=== PATIENT | male | born 1950 | race Two or more races ===

== ENCOUNTER 2025-01-02 03:46 | Inpatient (IN) | payer OTHER ==
[~2025-01-02] VITALS: Ht 180.3 cm; Wt 79.1 kg
[2025-01-02] VITALS (67 sets, daily range): BP systolic 79–125; BP diastolic 49–83; PULSE 72–99; RESP 9–22; TEMP 97.2–98.6; O2SAT 79–100
[2025-01-02] MEDS: DOBUTamine 1000MCG/ML 250 ML IV SCH (03:50)
--- NOTE | 2025-01-02 04:03 | ECG ---
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
--- NOTE | 2025-01-02 04:08 | ED.PDOC ---
HPI Comments 74-year-old male with a history of CAD, AFib, CHF, COPD, mi, diabetes transferred from [facility] where he presented complaining of chest pain. Patient was found to be hypotensive with blood pressure as low as 43/26, and is currently on a dobutamine infusion. Patient underwent extensive workup with EKG showing rate controlled AFib, chest x-ray showing diffuse bilateral interstitial opacities, patchy left basilar airspace disease and cardiomegaly. Labs including serial lactates and troponins were unremarkable. Patient transiently required BiPAP due to hypoxia on 3 L nasal cannula, however now is on 3 L nasal cannula with normal oxygen saturation and no respiratory distress. On arrival to the ED, patient is still complaining of squeezing chest pain in the left lower chest area. He denies feeling short of breath, nausea, vomiting or sweating. Time Seen by MD: 04:03 Allergies: Coded Allergies: NO KNOWN ALLERGIES (Unverified , 01/02/25) Past Medical History PAST MEDICAL HISTORY: AFIB, CAD, COPD, DM, High Lipids, HTN, [place] Surgical History: PTCA Social History Smoker: Quit Greater Than 1 Year Alcohol: Denies ETOH Use Drugs: Denies Drug Use Lives In: Home All Other Systems: Reviewed and Negative Physical Exam General Appearance: No Apparent Distress HEENT: Other (pupils and face symmetric. moist mucous membranes.) Neck: Full Range of Motion, Normal Inspection Respiratory: Decreased Breath Sounds, No Accessory Muscle Use, No Respiratory Distress Cardiovascular: Irregular, No JVD Breast Exam: Deferred Gastrointestinal: Non Tender, Soft Genitalia: Deferred Pelvic: Deferred Rectal: Deferred Extremities: Normal range of motion, Non-tender Neurologic: Alert (oriented x 4), Other (Appropriately conversant and moving all extremities. No gross focal deficit.) Cerebellar Function: NOT DONE Reflexes: NOT DONE Skin: Dry, Normal Color, Warm Lymphatic: NOT DONE EKG EKG : Comments AFib, rate 83, QRS prolonged at 137, QTC prolonged at 510, left axis deviation, old inferior or anteroseptal infarct, nonspecific T change. Was a procedure done? Was a procedure done?: No CP Differential Dx Differential Diagnosis: Angina, Heart Failure, [place], Pulmonary Embolus Differential Diagnosis: CHF Differential Diagnosis: Chest Wall Pain, Esophageal reflux/spasm, Gastritis, Myocardial Infarction, Pericarditis, Pneumonia X-Ray, Labs, Meds, VS Vital Signs Date Time Temp Pulse Resp B/P (MAP) Pulse Ox O2 Delivery O2 Flow Rate FiO2 01/02/25 04:12 92/49 01/02/25 03:56 83 01/02/25 03:50 90/36 Lab Test 01/02/25 03:58 Range/Units White Blood Count 7.9 4.4-10.8 10^3/uL Red Blood Count 4.25 L 4.5-5.90 10^6/uL Hemoglobin 13.6 13.5-17.5 g/dL Hematocrit 40.0 L 41.0-53.0 % Mean Corpuscular Volume 94.1 80.0-100.0 fL Mean Corpuscular Hemoglobin 32.1 H 28.0-32.0 pg Mean Corpuscular Hemoglobin Concent 34.1 32.0-36.0 g/dL Red Cell Distribution Width 13.8 11.8-14.3 % Platelet Count 148 140-450 10^3/uL Mean Platelet Volume 9.7 6.9-10.8 fL Neutrophils (%) (Auto) 56.0 37.0-80.0 % Lymphocytes (%) (Auto) 20.1 10.0-50.0 % Monocytes (%) (Auto) 11.1 0.0-12.0 % Eosinophils (%) (Auto) 12.6 H 0.0-7.0 % Basophils (%) (Auto) 0.2 0.0-2.0 % Neutrophils # (Auto) 4.4 1.6-8.6 10 ^3/uL Lymphocytes # (Auto) 1.6 0.4-5.4 10 ^3/uL Monocytes # (Auto) 0.9 0-1.3 10 ^3/uL Eosinophils # (Auto) 1.0 H 0-0.8 10 ^3/uL Basophils # (Auto) 0 0-0.2 10 ^3/uL Nucleated Red Blood Cells 0.1 % Sodium Level 136 136-145 mmol/L Potassium Level 5.0 3.5-5.1 mmol/L Chloride Level 100 98-107 mmol/L Carbon Dioxide Level 31 20-31 mmol/L Anion Gap 5 5-15 Blood Urea Nitrogen 22 9-23 mg/dL Creatinine 1.13 0.700-1.30 mg/dL Glomerular Filtration Rate Calc 68 >90 mL/min BUN/Creatinine Ratio 19.5 10.0-20.0 Serum Glucose 112 H 74-106 mg/dL Calcium Level 8.1 L 8.7-10.4 mg/dL Troponin I High Sensitivity < 3 L </=54 ng/L B-Type Natriuretic Peptide 117.55 0-100 pg/mL Current Medications Medications (Trade) Dose Ordered Sig/Ventura Route Start Time Stop Time Status Last Admin Dobutamine HCl/ Dextrose 250 ml @ 23.7 mls/hr [id number] IV 01/02/25 04:00 01/02/25 03:50 Norepinephrine Bitartrate 250 ml @ 3.75 mls/hr Q24H IV 01/02/25 04:00 01/02/25 04:12 X-Ray, Labs, Meds, VS Comment 74-year-old male with extensive cardiac history and history of COPD on home O2 transferred from [facility] with chest pain and hypotension Vitals remarkable for BP 90/36 Exam remarkable for irregularly irregular heart rhythm, diminished breath sounds at lung bases Rhythm strip independently interpreted by me: AFib, rate eighty-three, no PVCs CBC, basic metabolic panel and 1st troponin unremarkable. BNP 117.55 Patient treated with the following in the ED: Dopamine infusion was continued. Patient started on a Levophed infusion with improvement of BP. Case discussed with Dr. Ling, who will admit the patient. Time of 1ST Reevaluation: 05:25 Reevaluation 1ST: Improved Patient Education/Counseling: Diagnosis, Treatment Family Education/Counseling: No Family Present SEPSIS Sepsis Screen SEPSIS EXCLUSION NOTE: Sepsis Exclusion Note: Patient presents with SIRS criteria, but the SIRS response is attributed to [CHF ]. Sepsis bundle is not initiated at this time, due to this reason. Further management will focus on the treatment of the above condition (s). Physician Orders Dobutamine 1000mcg/Ml (Dobutrex) (01/02/25 04:00) Norepinephrine 8 Mg/250ml Kit (Levophed) (01/02/25 04:00) B-Type Natriuretic Peptide (01/02/25 04:21) Troponin-I Hs (01/02/25 05:21) Troponin-I Hs (01/02/25 07:21) Urinalysis (01/02/25 04:45) Vital Signs Date Time Temp Pulse Resp B/P (MAP) Pulse Ox O2 Delivery O2 Flow Rate FiO2 01/02/25 04:12 92/49 01/02/25 03:56 83 01/02/25 03:50 90/36 Laboratory Tests Test 01/02/25 03:58 White Blood Count 7.9 10^3/uL (4.4-10.8) Medications Medications Dose Ordered Sig/Ventura Route Start Time Stop Time Status Last Admin Dose Admin Dobutamine HCl/ Dextrose 250 ml @ 23.7 mls/hr [id number] IV 01/02/25 04:00 01/02/25 03:50 Norepinephrine Bitartrate 250 ml @ 3.75 mls/hr Q24H IV 01/02/25 04:00 01/02/25 04:12 Departure 1 Departure Time of Disposition: 05:25 Impression: Primary Impression: Chest pain with high risk for cardiac etiology Additional Impression: Hypotension Qualified Codes: I95.9 - Hypotension, unspecified Disposition: ADMITTED INPATIENT Admit to: ICU Condition: Serious Critical Care Note Critical Care Time?: Yes (35 min-critical care time only) Critical care comment: Critical care time including multiple bedside re-evaluations, review of lab and imaging studies, and discussion of the case with the admitting provider. Patient is high risk for hemodynamic decompensation. Stability Stability form required: No Heart Score Heart Score: Heart Score Response (Comments) Value History Moderate Suspicious 1 EKG Repolarization Disturb 1 Age >65 2 Risk Factors >3 or Hx ASHD 2 Troponin Normal limit 0 Total 6 DANIEL BANKS MD Jan 02, 2025 04:08
[2025-01-02] MEDS: NOREPINEPHRINE 8 MG/250ML KIT 250 ML IV SCH ×2 (04:12→16:14)
[2025-01-02] MEDS: NOREPINEPHRINE 8 MG/250ML KIT 250 ML IV ONE (04:24)
[2025-01-02 04:29] LABS: Hematocrit 40.0 % (41.0-53.0); Hemoglobin 13.6 g/dL (13.5-17.5); Mean Corpuscular Hemoglobin 32.1 pg (28.0-32.0); Mean Corpuscular Volume 94.1 fL (80.0-100.0); Nucleated Red Blood Cells % 0.1 %
[2025-01-02 04:31] LABS: Chloride 100 mmol/L (98-107); Potassium 5.0 mmol/L (3.5-5.1)
[2025-01-02 04:32] LABS: Anion Gap 5 (5-15); Carbon Dioxide 31 mmol/L (20-31)
[2025-01-02 04:37] LABS: BUN/Creatinine Ratio 19.5 (10.0-20.0); Blood Urea Nitrogen 22 mg/dL (9-23)
[2025-01-02 04:40] LABS: Calcium 8.1 mg/dL (8.7-10.4); Glucose 112 mg/dL (74-106); Sodium 136 mmol/L (136-145)
[2025-01-02] MEDS ORDERED: VANCOMYCIN PER PHARMACY 0 MG IV SCH (05:15)
[2025-01-02] MEDS ORDERED: DEXTROSE (50%) 50ML SYRG IV PRN (05:15)
[2025-01-02] MEDS: MORPHINE SULFATE INJ 2 MG/ml SYRG IV ONE (05:40)
[2025-01-02] MEDS: ONDANSETRON HCL 4 MG/2 ML VIAL IV ONE (05:40)
[2025-01-02] MEDS: HEPARIN SODIUM (PORCINE) 5000 UNITS/ML 1ML VIAL IV ONE (05:41)
[2025-01-02] MEDS: PIPERACILLIN-TAZOB 3.375GM 100 ML IV ONE (05:42)
[2025-01-02 05:56] LABS: Hematocrit 41.5 % (41.0-53.0); Hemoglobin 14.4 g/dL (13.5-17.5); Mean Corpuscular Hemoglobin 32.8 pg (28.0-32.0); Mean Corpuscular Volume 95.0 fL (80.0-100.0); Nucleated Red Blood Cells % 0.1 %
[2025-01-02] MEDS: InsuLIN REG 1unit/0.01ml Soln (100units/ml) SC SCH (06:00)
[2025-01-02] MEDS ORDERED: NITROGLYCERIN 0.4 MG SL TAB SL PRN (06:00)
[2025-01-02 06:06] LABS: INR 1.26 (0.9-1.15); Partial Thromboplastin Time 31.4 SEC (24.5-34.5); Prothrombin Time 13.1 sec (9.3-11.8)
[2025-01-02] MEDS: IOHEXOL 350 MG/ML 100ML IJ ONE (06:24)
[2025-01-02] MEDS: ACCU-CHEK COMFORT CURVE STRIP VI SCH (06:27)
--- NOTE | 2025-01-02 06:48 | DVH ---
CTA Chest with intravenous contrast INDICATION: evauate for progression of pulmonary embolism COMPARISON: None TECHNIQUE: Multidetector spiral CTA of the chest was performed of the chest with intravenous contrast . PULMONARY ANGIOGRAPHY PROTOCOL was utilized using a bolus-tracking technique centered on the main p ulmonary artery. Axial, coronal and sagittal multiplanar and MIP reformats were performed. Radiation Dose : 1. Chest: CTDI volume is 41 mGy. Dose-length product is 856 mGy*cm The dose indicators for CT are the volume Computed Tomography (CT) Dose Index (CTDIvol) and the Dose Length Product (DLP), and are measured in units of mGy and mGy-cm, respectively. These indicators are not patient dose, but values generated from the CT scanner acquisition factors. The report includes radiation exposure data for exposures received during this examination. Findings: Pulmonary artery: No pulmonary embolism Lower neck: Normal thyroid. Lungs: Bibasilar subsegmental atelectasis. Left lower lobe compressive atelectasis. Heart/Vascular Structures: Cardiomegaly. Coronary artery calcifications. Vascular calcifications of t he aorta. Lymph Nodes: No adenopathy Pleura: Moderate left pleural effusion. Trace right pleural effusion. Musculoskeletal: No acute osseous abnormality. Degenerative changes of the spine. Soft tissues: Normal. Upper abdomen: Limited portions of the upper abdomen are unremarkable. IMPRESSION: No pulmonary embolism. Cardiomegaly. Moderate left pleural effusion. Left lower lobe compressive atelectasis.
[2025-01-02] MEDS: HEPARIN DRIP/D5W 100UNITS/ML 250 ML IV SCH (06:54)
[2025-01-02] MEDS: cefTRIAXone 1GM/50ML D5W 50 ML IV SCH (08:04)
[2025-01-02] MEDS: MORPHINE SULFATE INJ 2 MG/ml SYRG IV PRN (08:49)
[2025-01-02] MEDS: AZITHROMYCIN 500MG/ 250ML 250 ML IV SCH (09:06)
[2025-01-02] MEDS: ASPirin-EC 81 mg tab PO SCH (09:30)
[2025-01-02] MEDS: APIXABAN 5 MG TAB PO ONE (09:30)
[2025-01-02] MEDS: AMIODARONE HCL 200 MG TAB PO SCH (09:30)
[2025-01-02] MEDS ORDERED: PIPERACILLIN-TAZOB 3.375GM 100 ML IV SCH (14:00)
[2025-01-02] MEDS: HYDROmorphone HCL 2 MG/ML VL/or syr IV PRN (17:06)
--- NOTE | 2025-01-02 17:37 | DVHNC2 ---
Procedure - Ultrasound-guided Left Thoracentesis procedure note: Physician: Dr Lucia Cuello Time out time: Patient medications and allergies reviewed. The risks and benefits of the procedure and the sedation options and risk were discussed with the patient's healthcare proxy. All questions were answered and informed consent was obtained. Patient identification and proposed procedure were verified prior to the procedure by the physician, and a nurse in the patient's room. The heart rate, respiratory rate, oxygen saturations, blood pressure, adequacy of pulmonary ventilation, and response to care were monitored throughout the procedure. The physical status of the patient was reassessed after the procedure. Date: 01/02/25 Consent: Consent was obtained from patient's healthcare proxy prior to procedure. Indication, risks, and benefits were explained at length. Procedure summary: A timeout was performed and a chest x-ray was reviewed prior to procedure. The appropriate site was confirmed and marked. My hands were washed immediately prior to the procedure, I wore a surgical cap, mask with protective eyewear, sterile gown and sterile gloves throughout the procedure. The patient was prepped and draped in a sterile manner using chlorhexidine scrub after the appropriate level was percussed and confirmed by ultrasound. 1% lidocaine was used to anesthetize the skin, subcutaneous tissue, superior aspect of the rib periosteum and parietal pleura. A finder needle was then introduced over the superior aspect of the rib to locate the pleural fluid; sero-sanguineous fluid was aspirated. A 10 blade scalpel was used to hermilo the skin at the insertion site. Thoracentesis needle was then introduced through the skin incision into the pleural space using negative aspiration pressure. The thoracentesis catheter was then threaded without difficulty. 650 mL sero-sanguineous fluid were removed without difficulty. The catheter was then removed. No immediate complications were noted during the procedure. A postprocedure chest x-ray is pending at the time of this note. The pleural fluid will be sent for cultures and cytology. Estimated blood loss is less than 5 mL's. CPT: 19256 JESU CUELLO MD Jan 02, 2025 17:37
[2025-01-02] MEDS: TAMSULOSIN HYDROCHLORIDE 0.4 MG CAP PO SCH (18:00)
[2025-01-02] MEDS: APIXABAN 5 MG TAB PO SCH (21:46)
[2025-01-02] MEDS: ATORVASTATIN 20 MG TAB PO SCH (21:47)
--- NOTE | 2025-01-02 23:44 | DVHINCON2 ---
Date of service: Jan 02, [address] Perez Reason for Consultation Acute hypoxic respiratory failure and pleural effusion. History of Present Illness A 74-year-old man with past medical history that includes COPD, myocardial infarction, AFib, CHF, coronary artery disease and diabetes who presents today transferred from [facility] where he presented compl aining of chest pain. Patient was found to be hypotensive with BP as low as 43/26, and is currently on a dobutamine infusion. Patient underwent extensive workup with EKG showing rate controlled AFib, chest x-ray showing diffuse bilateral interstitial opacities, patchy left basilar airspace disease and cardiomegaly. Labs including serial lactates and troponins were unremarkable. Patient transiently required BiPAP due to hypoxia on 3 LPM NC, however placed back on 3 LPM with normal oxygen saturation and no respiratory distress. On arrival to the ED, patient was still complaining of squeezing chest pain in the left lower chest area. He denied SOB, nausea, vomiting, etc. Patient was admitted for further care. Pulmonary consultation is requested for evaluation and management of acute hypoxic respiratory failure and pleural effusion. Review of Systems: 14-point review of systems negative unless otherwise noted above. Past Medical History: COPD, atrial fibrillation, CAD, diabetes, [place], hyperlipidemia, hypertension. Past Surgical History: PTCA. Medications: Reviewed. Allergies: No known drug allergies. Family History: No family history of premature CAD. No family history of lung disorders. Social History: Former smoker, quit >1 year ago. No alcohol or illicit drug use. Allergies: Coded Allergies: NO KNOWN ALLERGIES (Unverified , 01/02/25) Home Meds No Active Prescriptions or Reported Meds Current Medications Current Medications Medications (Trade) Dose Ordered Sig/Ventura Route PRN Reason Start Time Stop Time Status Last Admin Dobutamine HCl/ Dextrose 250 ml @ 23.7 mls/hr [id number] IV 01/02/25 04:00 01/02/25 03:50 Norepinephrine Bitartrate 250 ml @ 3.75 mls/hr Q24H IV 01/02/25 04:00 01/02/25 15:38 DC 01/02/25 04:12 Piperacillin Sod/ Tazobactam Sod 100 ml @ 25 mls/hr Q8HR IV 01/02/25 14:00 01/02/25 14:00 Cancel Vancomycin HCl 0 ml @ 0 mls/hr UD IV 01/02/25 05:15 01/02/25 05:52 DC Diagnostic Test (Pha) (Accu-Chek Comfort Curve T) 1 strip Q6HR 01/02/25 06:00 01/02/25 18:00 Insulin Human Regular (InsuLIN R) Q6HR SC 01/02/25 06:00 Dextrose 50 ml UD PRN IV Blood Sugar LESS THAN 60 01/02/25 05:15 Aspirin (Ecotrin Enteric Coated Tablet) 81 mg DAILY PO 01/02/25 10:00 01/02/25 09:30 Atorvastatin Calcium (Lipitor) 80 mg HS PO 01/02/25 22:00 01/02/25 21:47 Amiodarone HCl (Cordarone Tablet) 400 mg DAILY PO 01/02/25 10:00 01/02/25 09:30 Tamsulosin HCl (Flomax) 0.4 mg QPM PO 01/02/25 18:00 01/02/25 18:00 Heparin Sodium/ Dextrose 250 ml @ 14 mls/hr [id number] IV 01/02/25 06:30 01/02/25 08:37 DC 01/02/25 06:54 Azithromycin 250 ml @ 125 mls/hr DAILY IV 01/02/25 10:00 01/02/25 09:06 Ceftriaxone Sodium 50 ml @ 100 mls/hr DAILY@09 IV 01/02/25 09:00 01/02/25 08:04 Nitroglycerin (Ntrostat Sublingual) 0.4 mg Q5MINP PRN SL FOR CHEST PAIN 01/02/25 06:00 Morphine Sulfate 2 mg Q30M PRN IV FOR CHEST PAIN 01/02/25 06:00 01/02/25 14:06 Acetaminophen/ Hydrocodone Bitart ([place] 5/325MG Tab) 1 tab Q4HPRN PRN PO MODERATE PAIN (4-6 PAIN SCALE) 01/02/25 06:00 Apixaban (Eliquis) 5 mg BID PO 01/02/25 22:00 01/02/25 21:46 Norepinephrine Bitartrate 250 ml @ 3.75 mls/hr Q24H IV 01/02/25 15:45 01/02/25 16:14 Hydromorphone HCl (Dilaudid Injection) 0.5 mg Q3HPRN PRN IV PAIN SCALE 7 THRU 10 01/02/25 15:45 01/02/25 23:18 Vital Signs Vital Signs Date Time Temp Pulse Resp B/P (MAP) Pulse Ox O2 Delivery O2 Flow Rate FiO2 01/02/25 23:18 75 21 95/57 01/02/25 22:45 95 01/02/25 22:00 Nasal Cannula* 3 32 01/02/25 20:00 97.8 97.8 Physical Exam Gen.: Patient lying in bed in no apparent distress. On supplemental oxygen. Head: Normocephalic, atraumatic. Eyes: EOMI/PERRLA. Ears: Normal hearing. Normal anatomy. Neck/trachea: Trachea midline, supple. Nose: Normal external anatomy. Mouth: Moist mucous membranes. Chest: Decreased air entry bilaterally. No wheezing or rhonchi. Cardiovascular: Positive S1, positive S2. Regular rate and rhythm. Abdomen: Positive bowel sounds in all 4 quadrants. Soft, non-tender, non- distended. : Deferred. Rectal: Deferred. Skin: Warm, dry. Intact. Extremities: 2+ radial pulses bilaterally. No lower extremity edema. Neuro: Awake, alert, oriented x3. No gross motor or sensory deficits. Cranial nerves II through XII intact. Gait not assessed. Labs/Diagnostic Data Labs Test 01/02/25 18:10 01/02/25 17:22 01/02/25 07:14 01/02/25 05:33 Range/Units POC Glucose 130 H 70-106 mg/dl Body Fluid Source Pleural fluid Body Fluid pH 9.0 Body Fluid WBC (Manual) 744 H 0-200 CUMM Body Fluid RBC (Manual) 93179 H 0-2000 CUMM Body Fluid Mononuclear Cells 87 % Body Fluid Polymorphonuclear Cells 13 0-25 % Troponin I High Sensitivity 5 </=54 ng/L White Blood Count 8.8 4.4-10.8 10^3/uL Red Blood Count 4.37 L 4.5-5.90 10^6/uL Hemoglobin 14.4 13.5-17.5 g/dL Hematocrit 41.5 41.0-53.0 % Mean Corpuscular Volume 95.0 80.0-100.0 fL Mean Corpuscular Hemoglobin 32.8 H 28.0-32.0 pg Mean Corpuscular Hemoglobin Concent 34.6 32.0-36.0 g/dL Red Cell Distribution Width 14.0 11.8-14.3 % Platelet Count 149 140-450 10^3/uL Mean Platelet Volume 9.5 6.9-10.8 fL Neutrophils (%) (Auto) 56.9 37.0-80.0 % Lymphocytes (%) (Auto) 20.1 10.0-50.0 % Monocytes (%) (Auto) 10.1 0.0-12.0 % Eosinophils (%) (Auto) 12.6 H 0.0-7.0 % Basophils (%) (Auto) 0.3 0.0-2.0 % Neutrophils # (Auto) 5.0 1.6-8.6 10 ^3/uL Lymphocytes # (Auto) 1.8 0.4-5.4 10 ^3/uL Monocytes # (Auto) 0.9 0-1.3 10 ^3/uL Eosinophils # (Auto) 1.1 H 0-0.8 10 ^3/uL Basophils # (Auto) 0 0-0.2 10 ^3/uL Nucleated Red Blood Cells 0.1 % Prothrombin Time 13.1 H 9.3-11.8 sec Prothrombin Time INR 1.26 H 0.9-1.15 Activated Partial Thromboplast Time 31.4 24.5-34.5 SEC Test 01/02/25 03:58 Range/Units Sodium Level 136 136-145 mmol/L Potassium Level 5.0 3.5-5.1 mmol/L Chloride Level 100 98-107 mmol/L Carbon Dioxide Level 31 20-31 mmol/L Anion Gap 5 5-15 Blood Urea Nitrogen 22 9-23 mg/dL Creatinine 1.13 0.700-1.30 mg/dL Glomerular Filtration Rate Calc 68 >90 mL/min BUN/Creatinine Ratio 19.5 10.0-20.0 Serum Glucose 112 H 74-106 mg/dL Calcium Level 8.1 L 8.7-10.4 mg/dL B-Type Natriuretic Peptide 117.55 0-100 pg/mL Assessment Impression: Acute hypoxic respiratory failure Shock Pleural effusion, left Atelectasis Hx of nicotine dependence Plan: Supplemental oxygen Titrate to keep O2 sats above 92%. CT angio revealed No pulmonary embolism. Cardiomegaly. Moderate left pleural effusion. Left lower lobe compressive atelectasis. Plan for left thoracentesis for pleural effusion On pressors (Levophed) for hemodynamic support Titrate to keep mean arterial pressure greater than 65 mmHg. On dobutamine drip for inotropic support Cardiology recommendations appreciated. Eliquis BID Amiodarone PO Continue antibiotics Incentive spirometry Pain control Avoid oversedation S/p left thoracentesis today with 650 mL sero-sanguineous fluid removed. See s eparate procedure note for details Follow up pleural fluid cultures and cytology Monitor renal function. Monitor electrolytes. Supplement as necessary. Monitor ins and outs. DVT prophylaxis. Prognosis: Poor given patient's multiple co-morbidities. Condition: Critical Rest of plan per hospitalist and other consultants. A total of 35 minutes of critical care time was spent reviewing the patient record, examining the patient, making a diagnostic and therapeutic plan, discussing this plan with the medical personnel, following up on diagnostic studies and following the patient for clinical stability excluding any and all procedures. At least 50% of this time was spent in direct, [id number] contact. Thank you, Dr. Perez, for allowing me to participate in this patient's care. Further recommendations will depend on the patient's clinical course. Please do not hesitate to contact me if you have any questions or concerns. This medical document was created using an electronic medical record system with [employer] dictation system. Although these documentations are being carefully reviewed, there may still be some phonetic and typographical changes. The errors are purely typographical, due to imperfection on the software program, and do not reflect any compromise in the patient's medical care. Plan discussed with: Patient, Other (RN/MD) JESU CARRANZA MD Jan 02, 2025 23:44
[2025-01-03] VITALS (79 sets, daily range): BP systolic 83–127; BP diastolic 46–92; PULSE 69–114; RESP 10–28; TEMP 97.7–98.2; O2SAT 80–99
--- NOTE | 2025-01-03 00:08 | DVHINCON2 ---
Date of service: Jan 02, 2025 Referring Physician Sushil Reason for Consultation Cardiogenic shock History of Present Illness This is a 74-year-old male with a past medica history of CAD, AFib, CHF, COPD, DC diabetes transferred here to [facility] from [facility] where he presented complaining of chest pain. Patient was found to be hypotensive with blood pressure as low as 43/26, and is currently on a dobutamine infusion. Patient underwent an extensive workup with EKG showing rate controlled AFib. Chest x-ray showed diffuse bilateral interstitial opacities, patchy left basilar airspace disease and cardiomegaly. Patient transiently required BiPAP due to hypoxia on 3 L nasal cannula, however now is on 3 L nasal cannula with normal oxygen saturation and no respiratory distress. On arrival to the ED, patient is still complaining of squeezing chest pain in the left lower chest area. CTA chest revealed no pulmonary embolism. There is cardiomegaly, moderate left pleural effusion, left lower lobe compressive atelectasis. EKG shows AFib, rate 83, QRS prolonged at 137, QTC prolonged at 510, left axis deviation, old inferior or anteroseptal infarct, nonspecific T change. Patient was admitted to the hospital. I am asked to consult on this patient. Allergies: Coded Allergies: NO KNOWN ALLERGIES (Unverified , 01/02/25) Current Medications Current Medications Medications (Trade) Dose Ordered Sig/[place] Route PRN Reason Start Time Stop Time Status Last Admin Dobutamine HCl/ Dextrose 250 ml @ 23.7 mls/hr [id number] IV 01/02/25 04:00 01/02/25 03:50 Norepinephrine Bitartrate 250 ml @ 3.75 mls/hr Q24H IV 01/02/25 04:00 01/02/25 15:38 DC 01/02/25 04:12 Piperacillin Sod/ Tazobactam Sod 100 ml @ 25 mls/hr Q8HR IV 01/02/25 14:00 01/02/25 14:00 Cancel Vancomycin HCl 0 ml @ 0 mls/hr UD IV 01/02/25 05:15 01/02/25 05:52 DC Diagnostic Test (Pha) (Accu-Chek Comfort Curve T) 1 strip Q6HR 01/02/25 06:00 01/02/25 18:00 Insulin Human Regular (InsuLIN R) Q6HR SC 01/02/25 06:00 Dextrose 50 ml UD PRN IV Blood Sugar LESS THAN 60 01/02/25 05:15 Aspirin (Ecotrin Enteric Coated Tablet) 81 mg DAILY PO 01/02/25 10:00 01/02/25 09:30 Atorvastatin Calcium (Lipitor) 80 mg HS PO 01/02/25 22:00 01/02/25 21:47 Amiodarone HCl (Cordarone Tablet) 400 mg DAILY PO 01/02/25 10:00 01/02/25 09:30 Tamsulosin HCl (Flomax) 0.4 mg QPM PO 01/02/25 18:00 01/02/25 18:00 Heparin Sodium/ Dextrose 250 ml @ 14 mls/hr [id number] IV 01/02/25 06:30 01/02/25 08:37 DC 01/02/25 06:54 Azithromycin 250 ml @ 125 mls/hr DAILY IV 01/02/25 10:00 01/02/25 09:06 Ceftriaxone Sodium 50 ml @ 100 mls/hr DAILY@09 IV 01/02/25 09:00 01/02/25 08:04 Nitroglycerin (Ntrostat Sublingual) 0.4 mg Q5MINP PRN SL FOR CHEST PAIN 01/02/25 06:00 Morphine Sulfate 2 mg Q30M PRN IV FOR CHEST PAIN 01/02/25 06:00 01/02/25 14:06 Acetaminophen/ Hydrocodone Bitart ([place] 5/325MG Tab) 1 tab Q4HPRN PRN PO MODERATE PAIN (4-6 PAIN SCALE) 01/02/25 06:00 Apixaban (Eliquis) 5 mg BID PO 01/02/25 22:00 01/02/25 21:46 Norepinephrine Bitartrate 250 ml @ 3.75 mls/hr Q24H IV 01/02/25 15:45 01/02/25 16:14 Hydromorphone HCl (Dilaudid Injection) 0.5 mg Q3HPRN PRN IV PAIN SCALE 7 THRU 10 01/02/25 15:45 01/02/25 20:19 Review of Systems All Other Systems: Reviewed and Negative Vital Signs Vital Signs Date Time Temp Pulse Resp B/P (MAP) Pulse Ox O2 Delivery O2 Flow Rate FiO2 01/02/25 22:45 73 18 88/56 (67) 95 01/02/25 22:00 Nasal Cannula* 3 32 01/02/25 20:00 97.8 97.8 Physical Exam GENERAL: Alert and oriented x 3. No acute distress. EYES: PERRL, EOMI. Anicteric. HENT: Moist mucous membranes. LUNGS: breath sounds. CARDIOVASCULAR: Irregular rate and rhythm. ABDOMEN: Soft, nontender and nondistended. EXTREMITIES: No edema. NEUROLOGIC: No focal neurological deficits. SKIN: Warm, dry. Labs/Diagnostic Data Labs Test 01/02/25 18:10 01/02/25 17:22 01/02/25 07:14 01/02/25 05:33 Range/Units POC Glucose 130 H 70-106 mg/dl Body Fluid Source Pleural fluid Body Fluid pH 9.0 Body Fluid WBC (Manual) 744 H 0-200 CUMM Body Fluid RBC (Manual) 30981 H 0-2000 CUMM Body Fluid Mononuclear Cells 87 % Body Fluid Polymorphonuclear Cells 13 0-25 % Troponin I High Sensitivity 5 </=54 ng/L White Blood Count 8.8 4.4-10.8 10^3/uL Red Blood Count 4.37 L 4.5-5.90 10^6/uL Hemoglobin 14.4 13.5-17.5 g/dL Hematocrit 41.5 41.0-53.0 % Mean Corpuscular Volume 95.0 80.0-100.0 fL Mean Corpuscular Hemoglobin 32.8 H 28.0-32.0 pg Mean Corpuscular Hemoglobin Concent 34.6 32.0-36.0 g/dL Red Cell Distribution Width 14.0 11.8-14.3 % Platelet Count 149 140-450 10^3/uL Mean Platelet Volume 9.5 6.9-10.8 fL Neutrophils (%) (Auto) 56.9 37.0-80.0 % Lymphocytes (%) (Auto) 20.1 10.0-50.0 % Monocytes (%) (Auto) 10.1 0.0-12.0 % Eosinophils (%) (Auto) 12.6 H 0.0-7.0 % Basophils (%) (Auto) 0.3 0.0-2.0 % Neutrophils # (Auto) 5.0 1.6-8.6 10 ^3/uL Lymphocytes # (Auto) 1.8 0.4-5.4 10 ^3/uL Monocytes # (Auto) 0.9 0-1.3 10 ^3/uL Eosinophils # (Auto) 1.1 H 0-0.8 10 ^3/uL Basophils # (Auto) 0 0-0.2 10 ^3/uL Nucleated Red Blood Cells 0.1 % Prothrombin Time 13.1 H 9.3-11.8 sec Prothrombin Time INR 1.26 H 0.9-1.15 Activated Partial Thromboplast Time 31.4 24.5-34.5 SEC Test 01/02/25 03:58 Range/Units Sodium Level 136 136-145 mmol/L Potassium Level 5.0 3.5-5.1 mmol/L Chloride Level 100 98-107 mmol/L Carbon Dioxide Level 31 20-31 mmol/L Anion Gap 5 5-15 Blood Urea Nitrogen 22 9-23 mg/dL Creatinine 1.13 0.700-1.30 mg/dL Glomerular Filtration Rate Calc 68 >90 mL/min BUN/Creatinine Ratio 19.5 10.0-20.0 Serum Glucose 112 H 74-106 mg/dL Calcium Level 8.1 L 8.7-10.4 mg/dL B-Type Natriuretic Peptide 117.55 0-100 pg/mL Assessment Chest pain. Bilateral pleural effusions. Rate controlled A Fib. End stage cardiomyopathy. Hypotension. Plan/Recommendation I agree with your ongoing assessment and care of plan. Morphine and [place] for pain management. Amiodarone. Eliquis. Aspirin, Lipitor. IV antibiotics as ordered. Dobutamine drip. Nitro SL. Vasopressors for hemodynamic support. Additional plan as per the hospital course. Critical care time of 90 minutes provided to include time spent evaluation of patient at bedside, when appropriate patient/family education for diagnosis, treatment plan, review of pertinent medical information and discussion of care with specialty providers and PCP. Plan discussed with: Patient VICKY REDDY MD Jan 02, 2025 23:06
[2025-01-03 04:10] LABS: Hematocrit 43.7 % (41.0-53.0); Hemoglobin 14.9 g/dL (13.5-17.5); Mean Corpuscular Hemoglobin 32.1 pg (28.0-32.0); Mean Corpuscular Volume 94.0 fL (80.0-100.0)
[2025-01-03 04:12] LABS: Chloride 100 mmol/L (98-107); Potassium 4.9 mmol/L (3.5-5.1); Sodium 138 mmol/L (136-145)
[2025-01-03 04:13] LABS: Anion Gap 2 (5-15); Calcium 8.9 mg/dL (8.7-10.4)
[2025-01-03 04:18] LABS: BUN/Creatinine Ratio 17.9 (10.0-20.0); Blood Urea Nitrogen 12 mg/dL (9-23); Glucose 103 mg/dL (74-106)
[2025-01-03 04:50] LABS: Carbon Dioxide 36 mmol/L (20-31)
--- NOTE | 2025-01-03 07:08 | DVHPN2 ---
Progress Note Date Seen: Jan 03, 2025 Medical Necessity Reason Pt with a Central, PICC or Fol: Yes The following are medically ne: Sebastian Catheter Subjective Patient reports: No new complaints Review of Systems: HEENT:Normal, CVS:Abnormal, RESPIRATORY:Abnormal, GI:Normal Objective vital signs Vital Sign Date Time Temp Pulse Resp B/P (MAP) Pulse Ox O2 Delivery O2 Flow Rate FiO2 01/03/25 06:47 93 21 95/71 01/03/25 06:00 95 Nasal Cannula* 3 32 01/03/25 00:00 98.2 98.2 Total Intake and Output 01/02/25 01/02/25 01/03/25 15:00 23:00 07:00 Intake Total 630.20 ml 205.5 ml 527.5 ml Output Total 1650 ml 1600 ml Balance 630.20 ml -1444.5 ml -1072.5 ml medications Current Medications Medications Dose Ordered Sig/Ventura Route Start Time Stop Time Status Last Admin Dose Admin Dobutamine HCl/ Dextrose 250 ml @ 23.7 mls/hr [id number] IV 01/02/25 04:00 01/02/25 03:50 23.7 MLS/HR Piperacillin Sod/ Tazobactam Sod 100 ml @ 25 mls/hr Q8HR IV 01/02/25 14:00 01/02/25 14:00 Cancel Diagnostic Test (Pha) 1 strip Q6HR 01/02/25 06:00 01/03/25 06:25 1 STRIP Insulin Human Regular Q6HR SC 01/02/25 06:00 01/03/25 00:14 3 UNITS Dextrose 50 ml UD PRN IV 01/02/25 05:15 Aspirin 81 mg DAILY PO 01/02/25 10:00 01/02/25 09:30 81 MG Atorvastatin Calcium 80 mg HS PO 01/02/25 22:00 01/02/25 21:47 80 MG Amiodarone HCl 400 mg DAILY PO 01/02/25 10:00 01/02/25 09:30 400 MG Tamsulosin HCl 0.4 mg QPM PO 01/02/25 18:00 01/02/25 18:00 0.4 MG Azithromycin 250 ml @ 125 mls/hr DAILY IV 01/02/25 10:00 01/02/25 09:06 125 MLS/HR Ceftriaxone Sodium 50 ml @ 100 mls/hr DAILY@09 IV 01/02/25 09:00 01/02/25 08:04 100 MLS/HR Nitroglycerin 0.4 mg Q5MINP PRN SL 01/02/25 06:00 Morphine Sulfate 2 mg Q30M PRN IV 01/02/25 06:00 01/02/25 14:06 2 MG Acetaminophen/ Hydrocodone Bitart 1 tab Q4HPRN PRN PO 01/02/25 06:00 Apixaban 5 mg BID PO 01/02/25 22:00 01/02/25 21:46 5 MG Norepinephrine Bitartrate 250 ml @ 3.75 mls/hr Q24H IV 01/02/25 15:45 01/02/25 16:14 7.5 MLS/HR Hydromorphone HCl 0.5 mg Q3HPRN PRN IV 01/02/25 15:45 01/03/25 06:47 0.5 MG Examination: GENERAL:Normal, LUNGS:Abnormal, CVS:Abnormal laboratory and microbiology Laboratory Tests 01/03/25 03:30 Test 01/03/25 03:30 Range/Units Serum Glucose 103 74-106 mg/dL Problem List/Assessment/Plan Problem List/Assessment/Plan 1) Acute respiratory failure 2) HFrEF 15% 3) CAD 4) COPD 5) DM 6) Atrial fibrillation 7) L pleural effusion s/p thoracentesis 650 ml out plan; 01/03-----still on 2mcg levophed this AM, on 3L o2 via NC, underwent L thoracentesis yesterday with pulmonary with 650 ml out, cardiology consultation following, restarted patients home eliquis, CTA no evidence of PE, CBC nml. chem shows preserved renal function, attempt to wean levophed to off, supportive care, overall poor prognosis given severe cardiomyopathy Plan discussed with: Other (n) BRADFORD COSTELLO MD Jan 03, 2025 07:08
[2025-01-03] MEDS: MIDODRINE HCL 10 MG TAB PO SCH (07:15)
[2025-01-03 07:26] LABS: RBC Morphology Normal; Total Cells Counted 100.0 (100)
[2025-01-03] MEDS: MIDODRINE HCL 10 MG TAB PO ONE (18:28)
[2025-01-03 22:37] LABS: Urine Protein, UAD Negative (Negative)
--- NOTE | 2025-01-03 23:31 | DVHPN2 ---
Progress Note - Dictate Date Seen: Jan 03, 2025 Medical Necessity Reason Pt with a Central, PICC or Fol: Yes The following are medically ne: Steven Catheter Reason for steven catheter: Strict I&O Subjective Patient seen and examined at bedside. Remains on supplemental oxygen Overnight events reviewed. vital signs Vital Sign Date Time Temp Pulse Resp B/P (MAP) Pulse Ox O2 Delivery O2 Flow Rate FiO2 01/03/25 21:01 103 12 117/60 01/03/25 20:45 98 01/03/25 20:00 Nasal Cannula* 3 32 01/03/25 20:00 97.9 97.9 Total Intake and Output 01/02/25 01/02/25 01/03/25 15:00 23:00 07:00 Intake Total 630.20 ml 205.5 ml 562.25 ml Output Total 1650 ml 1600 ml Balance 630.20 ml -1444.5 ml -1037.75 ml medications Current Medications Medications Dose Ordered Sig/Ventura Route Start Time Stop Time Status Last Admin Dose Admin Piperacillin Sod/ Tazobactam Sod 100 ml @ 25 mls/hr Q8HR IV 01/02/25 14:00 01/02/25 14:00 Cancel Diagnostic Test (Pha) 1 strip Q6HR 01/02/25 06:00 01/03/25 17:17 1 STRIP Insulin Human Regular Q6HR SC 01/02/25 06:00 01/03/25 12:18 3 UNITS Dextrose 50 ml UD PRN IV 01/02/25 05:15 Aspirin 81 mg DAILY PO 01/02/25 10:00 01/03/25 08:58 81 MG Atorvastatin Calcium 80 mg HS PO 01/02/25 22:00 01/03/25 21:28 80 MG Amiodarone HCl 400 mg DAILY PO 01/02/25 10:00 01/03/25 08:57 400 MG Tamsulosin HCl 0.4 mg QPM PO 01/02/25 18:00 01/03/25 17:17 0.4 MG Azithromycin 250 ml @ 125 mls/hr DAILY IV 01/02/25 10:00 01/03/25 08:57 125 MLS/HR Ceftriaxone Sodium 50 ml @ 100 mls/hr DAILY@09 IV 01/02/25 09:00 01/03/25 08:57 100 MLS/HR Nitroglycerin 0.4 mg Q5MINP PRN SL 01/02/25 06:00 Morphine Sulfate 2 mg Q30M PRN IV 01/02/25 06:00 01/02/25 14:06 2 MG Acetaminophen/ Hydrocodone Bitart 1 tab Q4HPRN PRN PO 01/02/25 06:00 Apixaban 5 mg BID PO 01/02/25 22:00 01/03/25 21:28 5 MG Hydromorphone HCl 0.5 mg Q3HPRN PRN IV 01/02/25 15:45 01/03/25 20:31 0.5 MG Trazodone HCl 50 mg HS PO 01/03/25 22:00 01/03/25 21:27 50 MG Midodrine 10 mg TID@0600,1200,1800 PO 01/04/25 06:00 objective Gen.: Patient lying in bed in no apparent distress. On supplemental oxygen. Head: Normocephalic, atraumatic. Eyes: EOMI/PERRLA. Ears: Normal hearing. Normal anatomy. Neck/trachea: Trachea midline, supple. Nose: Normal external anatomy. Mouth: Moist mucous membranes. Chest: Decreased air entry bilaterally. No wheezing or rhonchi. Cardiovascular: Positive S1, positive S2. Regular rate and rhythm. Abdomen: Positive bowel sounds in all 4 quadrants. Soft, non-tender, non- distended. : Deferred. Rectal: Deferred. Skin: Warm, dry. Intact. Extremities: 2+ radial pulses bilaterally. No lower extremity edema. Neuro: Awake, alert, oriented x3. No gross motor or sensory deficits. Cranial nerves II through XII intact. Gait not assessed. laboratory and microbiology Laboratory Tests 01/03/25 03:30 Test 01/03/25 03:30 Range/Units Serum Glucose 103 74-106 mg/dL Assessment/Plan Impression: Acute hypoxic respiratory failure Dependence on supplemental oxygen Shock Pleural effusion, left Atelectasis Hx of nicotine dependence Events: Remains on supplemental oxygen, 3 LPM NC Taper O2 as tolerated On pressors (Levophed) for hemodynamic support Titrate to keep mean arterial pressure greater than 65 mmHg. Taper off as tolerated Continue antibiotics Incentive spirometry S/p left thoracentesis on 01/02/25 with 650 mL sero-sanguineous fluid removed See separate procedure note for full details Follow up pleural fluid cultures and cytology CT angio revealed No pulmonary embolism. Labs and imaging reviewed. Rest of plan as noted below. Plan: Supplemental oxygen Titrate to keep O2 sats above 92%. On pressors (Levophed) for hemodynamic support Titrate to keep mean arterial pressure greater than 65 mmHg. Cardiology recommendations appreciated. Eliquis BID Amiodarone PO Continue antibiotics Incentive spirometry Pain control Avoid oversedation Monitor renal function. Monitor electrolytes. Supplement as necessary. Monitor ins and outs. DVT prophylaxis. Prognosis: Poor given patient's multiple co-morbidities. Condition: Critical Rest of plan per hospitalist and other consultants. A total of 35 minutes of critical care time was spent reviewing the patient record, examining the patient, making a diagnostic and therapeutic plan, discussing this plan with the medical personnel, following up on diagnostic studies and following the patient for clinical stability excluding any and all procedures. At least 50% of this time was spent in direct, [id number] contact. Thank you, Dr. Perez, for allowing me to participate in this patient's care. Further recommendations will depend on the patient's clinical course. Please do not hesitate to contact me if you have any questions or concerns. This medical document was created using an electronic medical record system with [employer] dictation system. Although these documentations are being carefully reviewed, there may still be some phonetic and typographical changes. The errors are purely typographical, due to imperfection on the software program, and do not reflect any compromise in the patient's medical care. Plan discussed with: Other (SONIYA Velázquez) Critical Care Time(min): 35 JESU CARRANZA MD Jan 03, 2025 23:31
--- NOTE | 2025-01-03 23:32 | DVHPN2 ---
Progress Note - Dictate Date Seen: Jan 03, 2025 Medical Necessity Reason Pt with a Central, PICC or Fol: Yes The following are medically ne: Sebastian Catheter Subjective Patient was seen and evaluated in follow up in the ICU. Patient is complaining of SOB. Patient is on 3 LPM NC. Patient underwent left sided thoracentesis yesterday with 650 ml fluid was removed. CO2 36. vital signs Vital Sign Date Time Temp Pulse Resp B/P (MAP) Pulse Ox O2 Delivery O2 Flow Rate FiO2 01/03/25 12:45 84 15 101/67 (78) 98 01/03/25 12:00 Nasal Cannula* 3 32 01/03/25 08:00 97.7 97.7 Total Intake and Output 01/02/25 01/02/25 01/03/25 15:00 23:00 07:00 Intake Total 630.20 ml 205.5 ml 562.25 ml Output Total 1650 ml 1600 ml Balance 630.20 ml -1444.5 ml -1037.75 ml medications Current Medications Medications Dose Ordered Sig/[place] Route Start Time Stop Time Status Last Admin Dose Admin Dobutamine HCl/ Dextrose 250 ml @ 23.7 mls/hr [id number] IV 01/02/25 04:00 01/02/25 03:50 23.7 MLS/HR Piperacillin Sod/ Tazobactam Sod 100 ml @ 25 mls/hr Q8HR IV 01/02/25 14:00 01/02/25 14:00 Cancel Diagnostic Test (Pha) 1 strip Q6HR 01/02/25 06:00 01/03/25 12:18 1 STRIP Insulin Human Regular Q6HR SC 01/02/25 06:00 01/03/25 12:18 3 UNITS Dextrose 50 ml UD PRN IV 01/02/25 05:15 Aspirin 81 mg DAILY PO 01/02/25 10:00 01/03/25 08:58 81 MG Atorvastatin Calcium 80 mg HS PO 01/02/25 22:00 01/02/25 21:47 80 MG Amiodarone HCl 400 mg DAILY PO 01/02/25 10:00 01/03/25 08:57 400 MG Tamsulosin HCl 0.4 mg QPM PO 01/02/25 18:00 01/02/25 18:00 0.4 MG Azithromycin 250 ml @ 125 mls/hr DAILY IV 01/02/25 10:00 01/03/25 08:57 125 MLS/HR Ceftriaxone Sodium 50 ml @ 100 mls/hr DAILY@09 IV 01/02/25 09:00 01/03/25 08:57 100 MLS/HR Nitroglycerin 0.4 mg Q5MINP PRN SL 01/02/25 06:00 Morphine Sulfate 2 mg Q30M PRN IV 01/02/25 06:00 01/02/25 14:06 2 MG Acetaminophen/ Hydrocodone Bitart 1 tab Q4HPRN PRN PO 01/02/25 06:00 Apixaban 5 mg BID PO 01/02/25 22:00 01/03/25 08:57 5 MG Norepinephrine Bitartrate 250 ml @ 3.75 mls/hr Q24H IV 01/02/25 15:45 01/02/25 16:14 7.5 MLS/HR Hydromorphone HCl 0.5 mg Q3HPRN PRN IV 01/02/25 15:45 01/03/25 09:51 0.5 MG Trazodone HCl 50 mg HS PO 01/03/25 22:00 objective GENERAL: Alert and oriented x 3. No acute distress. EYES: PERRL, EOMI. Anicteric. HENT: Moist mucous membranes. LUNGS: breath sounds. CARDIOVASCULAR: Irregular rate and rhythm. ABDOMEN: Soft, nontender and nondistended. EXTREMITIES: No edema. NEUROLOGIC: No focal neurological deficits. SKIN: Warm, dry. laboratory and microbiology Laboratory Tests 01/03/25 03:30 Test 01/03/25 03:30 Range/Units Serum Glucose 103 74-106 mg/dL Problem List Chest pain. Bilateral pleural effusions. Rate controlled A Fib. End stage cardiomyopathy. Hypotension. Assessment/Plan Continued all current supportive medical care. Dilaudid and [place] for pain management. Amiodarone. Eliquis. Aspirin, Lipitor. IV antibiotics as ordered. Nitro SL. Additional plan as per the hospital course. Critical care time of 45 minutes provided to include time spent evaluation of patient at bedside, when appropriate patient/family education for diagnosis, treatment plan, review of pertinent medical information and discussion of care with specialty providers and PCP. Plan discussed with: Patient VICKY REDDY MD Jan 03, 2025 13:28
[2025-01-04] VITALS (7 sets, daily range): BP systolic 103–118; BP diastolic 64–79; PULSE 63–111; RESP 14–19; TEMP 97.6–98.1; O2SAT 91–96
--- NOTE | 2025-01-04 00:43 | DVHSR ---
APPROVED REPORT EXAM: Two-dimensional and M-mode echocardiogram with Doppler and color Doppler. Blood Pressure: 98/65 mmHg INDICATION CHF RISK FACTORS Height: 5' 11", Weight: 174 DIMENSIONS LVDd6.8 (3.8-5.7cm)LA (2D)4.7 (1.9-4.0cm)Aortic Root3.7 (2.0-3.7cm) LVDs6.6 (2.5-4.0cm)LA (MM) (1.9-4.0cm)Aortic Cusp Exc1.6 (1.5-2.0cm) EF (%) 6.0 (55-70%)Rt. Atrium5.3 (1.9-4.0cm)Asc. Aorta cm IVSd1.3 (0.7-1.1cm)RV (D) (1.8-2.4cm) PWd1.2 (0.7-1.1cm) Mitral Valve MitralMitral Stenosis E wave1.10m/sMV Mean GR.mmHg E/A ratio0.02D MVAcm2 Aortic Valve Aortic ValveAortic Stenosis V10.50m/Aureliano Mean GR.1mmHg V20.70m/Aureliano Peak GR.2mmHg LVOT Diameter2.6 (1.8-2.4cm)Doppler AVA3.79cm2 Pulmonic Valve V20.50m/s Tricuspid Valve TR Velocity2.40m/s [id number] Conclusion REMARKABLY DILATED ALL CARDIAC CHAMBERS SEVERE LV AND RV HYPOKINESIS LV EF IS ONLY 6% TIPS OF MITRAL VALVE CALCIFIED NO EFFUSION IT IS END STAGE DILATED CARDIOMYOPATHY
[2025-01-04] MEDS: MIDODRINE HCL 10 MG TAB PO SCH (06:12)
--- NOTE | 2025-01-04 11:54 | DVHDS2 ---
New Physician D'charge PN Admitting Diagnosis Admitting Diagnosis chf shock Discharge Diagnosis end stage CHF EF 5% Respiratory failure afib Operations or Procedures none Reason(s) For Hospitalization Surgery Hospital Course 74 M who was transferred from outside hospital to this ER for hypotension and cardiogenic shock. Patient has known hx of end stage cardiomyopathy dilated and thus he was admitted to ICU on dobutamine gtt and levophed. Cardio saw him he had an echo done and EF 5-6% extremely low and end stage. Eventually he was weaned off the dobutamine and levophed and downgraded to tele. CBC was nml and chem panel also nml. He takes eliquis at home for afib which was continued. Had a lengthy discussion with the patient and his given his severe cardiomyopathy and hospice was suggested by the electrical maintenance worker however at this time it does not appear they are interested in hospice care. Given his low EF state and end stage heart failure he is at VERY high risk for sudden cardiac even, RI, cardiogenic shock, cardiac arrest and . THis was explained to family and they understand. At this time patient is hemodynamically stable and he will continue his home cardiac meds as prescribed by cardiology. Family will keep the option open for hospice should he decide on that. [facility] to arrange for all outpt follow up. Patient overall prognosis poor with high likelihood of readmission or adverse cardiac event. Treatment Plan Discharge Condition of Discharge Good Disposition Home Discharge Instructions Diet: Cardiac 2g Na,low cholest Activity: No Restrictions, As Tolerated Medications: see med sheet Follow Up Care Discharge Statement: "Patient was advised to return to the ER or call 911 if any headaches, dizziness, shortness of breath, chest pain, abdominal pain, bleeding, fevers, or worsening of medical condition. Patient was counseled about treatment plan, medications, possible side effects, patientverbalized understanding. All questions were answered to the best of my ability. This discharge took greater then 30 minutes in planning, reviewing documentation, counseling the patient, and discussing with other team members." BRADFORD COSTELLO MD Jan 04, 2025 11:54
[2025-01-04] MEDS: HYDROcodone-ACET 5/325MG TAB PO PRN (13:51)
--- NOTE | 2025-01-04 23:02 | DVHPN2 ---
Progress Note - Dictate Date Seen: Jan 04, 2025 Medical Necessity Reason Pt with a Central, PICC or Fol: Yes The following are medically ne: Steven Catheter Reason for steven catheter: Strict I&O Subjective Patient was seen and evaluated in follow up. Patient was downgraded to a tele bed. Patient denies any cardiac symptoms. Patient is cardiac stable for discharge. Telemetry reviewed. vital signs Vital Sign Date Time Temp Pulse Resp B/P (MAP) Pulse Ox O2 Delivery O2 Flow Rate FiO2 01/04/25 11:50 107 15 105/72 01/04/25 10:49 98.1 95 01/04/25 08:00 Nasal Cannula* 3 32 Total Intake and Output 01/03/25 01/03/25 01/04/25 15:00 23:00 07:00 Intake Total 555.000 ml 240 ml 100 ml Output Total 500 ml 640 ml Balance 555.000 ml -260 ml -540 ml medications Current Medications Medications Dose Ordered Sig/[place] Route Start Time Stop Time Status Last Admin Dose Admin Piperacillin Sod/ Tazobactam Sod 100 ml @ 25 mls/hr Q8HR IV 01/02/25 14:00 01/02/25 14:00 Cancel Diagnostic Test (Pha) 1 strip Q6HR 01/02/25 06:00 01/04/25 12:00 1 STRIP Insulin Human Regular Q6HR SC 01/02/25 06:00 01/03/25 23:53 2 UNITS Dextrose 50 ml UD PRN IV 01/02/25 05:15 Aspirin 81 mg DAILY PO 01/02/25 10:00 01/03/25 08:58 81 MG Atorvastatin Calcium 80 mg HS PO 01/02/25 22:00 01/03/25 21:28 80 MG Amiodarone HCl 400 mg DAILY PO 01/02/25 10:00 01/03/25 08:57 400 MG Tamsulosin HCl 0.4 mg QPM PO 01/02/25 18:00 01/03/25 17:17 0.4 MG Azithromycin 250 ml @ 125 mls/hr DAILY IV 01/02/25 10:00 01/03/25 08:57 125 MLS/HR Ceftriaxone Sodium 50 ml @ 100 mls/hr DAILY@09 IV 01/02/25 09:00 01/03/25 08:57 100 MLS/HR Nitroglycerin 0.4 mg Q5MINP PRN SL 01/02/25 06:00 Morphine Sulfate 2 mg Q30M PRN IV 01/02/25 06:00 01/02/25 14:06 2 MG Acetaminophen/ Hydrocodone Bitart 1 tab Q4HPRN PRN PO 01/02/25 06:00 Apixaban 5 mg BID PO 01/02/25 22:00 01/03/25 21:28 5 MG Hydromorphone HCl 0.5 mg Q3HPRN PRN IV 01/02/25 15:45 01/04/25 11:50 0.5 MG Trazodone HCl 50 mg HS PO 01/03/25 22:00 01/03/25 21:27 50 MG Midodrine 10 mg TID@0600,1200,1800 PO 01/04/25 06:00 01/04/25 11:49 10 MG objective GENERAL: Alert and oriented x 3. No acute distress. EYES: PERRL, EOMI. Anicteric. HENT: Moist mucous membranes. LUNGS: breath sounds. CARDIOVASCULAR: Irregular rate and rhythm. ABDOMEN: Soft, nontender and nondistended. EXTREMITIES: No edema. NEUROLOGIC: No focal neurological deficits. SKIN: Warm, dry. laboratory and microbiology Laboratory Tests 01/03/25 03:30 Test 01/03/25 03:30 Range/Units Serum Glucose 103 74-106 mg/dL Problem List Chest pain. Bilateral pleural effusions. Rate controlled A Fib. End stage cardiomyopathy. Hypotension. Assessment/Plan Continued all current supportive medical care. Nitro SL. Midodrine. Dilaudid and [place] for pain management. Additional plan as per the hospital course. Plan discussed with: Patient VICKY REDDY MD Jan 04, 2025 13:23
--- NOTE | 2025-01-04 23:49 | DVHPN2 ---
Progress Note - Dictate Date Seen: Jan 04, 2025 Medical Necessity Reason Pt with a Central, PICC or Fol: Yes The following are medically ne: Steven Catheter Reason for steven catheter: Strict I&O Subjective Patient seen and examined at bedside. Remains on supplemental oxygen Overnight events reviewed. vital signs Vital Sign Date Time Temp Pulse Resp B/P (MAP) Pulse Ox O2 Delivery O2 Flow Rate FiO2 01/04/25 17:00 97.9 77 16 103/69 (80) 96 97.9 01/04/25 08:00 Nasal Cannula* 3 32 Total Intake and Output 01/03/25 01/03/25 01/04/25 15:00 23:00 07:00 Intake Total 555.000 ml 240 ml 100 ml Output Total 500 ml 640 ml Balance 555.000 ml -260 ml -540 ml medications Current Medications Medications Dose Ordered Sig/[place] Route Start Time Stop Time Status Last Admin Dose Admin Piperacillin Sod/ Tazobactam Sod 100 ml @ 25 mls/hr Q8HR IV 01/02/25 14:00 01/02/25 14:00 Cancel objective Gen.: Patient lying in bed in no apparent distress. On supplemental oxygen. Head: Normocephalic, atraumatic. Eyes: EOMI/PERRLA. Ears: Normal hearing. Normal anatomy. Neck/trachea: Trachea midline, supple. Nose: Normal external anatomy. Mouth: Moist mucous membranes. Chest: Decreased air entry bilaterally. No wheezing or rhonchi. Cardiovascular: Positive S1, positive S2. Regular rate and rhythm. Abdomen: Positive bowel sounds in all 4 quadrants. Soft, non-tender, non- distended. : Deferred. Rectal: Deferred. Skin: Warm, dry. Intact. Extremities: 2+ radial pulses bilaterally. No lower extremity edema. Neuro: Awake, alert, oriented x3. No gross motor or sensory deficits. Cranial nerves II through XII intact. Gait not assessed. laboratory and microbiology Laboratory Tests 01/03/25 03:30 Test 01/03/25 03:30 Range/Units Serum Glucose 103 74-106 mg/dL Assessment/Plan Impression: Acute hypoxic respiratory failure Dependence on supplemental oxygen Shock Pleural effusion, left Atelectasis Hx of nicotine dependence Events: Remains on supplemental oxygen, 3 LPM NC Taper O2 as tolerated Off pressors, hemodynamically stable Complete antibiotics Incentive spirometry Patient is stable for discharge from the pulmonary standpoint. Disposition per hospitalist. Follow up in 2-3 weeks in Pulmonary Clinic. S/p left thoracentesis on 01/02/25 with 650 mL sero-sanguineous fluid removed See separate procedure note for full details Follow up pleural fluid cultures and cytology CT angio revealed no pulmonary embolism. Labs and imaging reviewed. Rest of plan as noted below. Plan: Supplemental oxygen Titrate to keep O2 sats above 92%. Cardiology recommendations appreciated. Eliquis BID Amiodarone PO Continue antibiotics Incentive spirometry Pain control Avoid oversedation Monitor renal function. Monitor electrolytes. Supplement as necessary. Monitor ins and outs. DVT prophylaxis. Prognosis: Guarded given patient's multiple co-morbidities. Rest of plan per hospitalist and other consultants. Thank you, Dr. Perez, for allowing me to participate in this patient's care. Further recommendations will depend on the patient's clinical course. Please do not hesitate to contact me if you have any questions or concerns. This medical document was created using an electronic medical record system with [employer] dictation system. Although these documentations are being carefully reviewed, there may still be some phonetic and typographical changes. The errors are purely typographical, due to imperfection on the software program, and do not reflect any compromise in the patient's medical care. Plan discussed with: Patient, Other (SONIYA Jauregui) JESU CARRANZA MD Jan 04, 2025 23:48
[2025-01-05 12:07] LABS: Glucose, Body Fluid 150.0 mg/dL (.); LD, Body Fluid 117.0 IU/L (.)
--- NOTE | 2025-01-05 21:32 | DVHHP ---
ADMIT DATE: 01/02/2025 CHIEF COMPLAINT: Coming in for low blood pressures, chest pain. HISTORY OF PRESENT ILLNESS: A 74-year-old male with significant past medical history for coronary artery disease status post 6 coronary stent placements; congestive heart failure with left ventricular ejection fraction of 15%; chronic obstructive pulmonary disease; chronic atrial fibrillation, on Eliquis; dyslipidemia; diabetes mellitus type 2 with complications, diabetic neuropathy who presents to the Emergency Room ____ hospice secondary to chest pains, nausea and dizziness symptoms. The patient was apparently presenting with low blood pressures of 40s/20s at the ER facility, complaining of symptoms of dizziness. The patient was started on dobutamine at that time. Extensive workup was completed there including EKG shows controlled chronic AFib. Chest x-ray revealed bilateral interstitial patches with left basilar surface opacities seen as well with cardiomegaly. The patient also was found to have small bilateral pleural effusions. The patient's labs did not indicate any form of sepsis etiology with normal white count and lactic acid. The patient was presenting with ____ apparently BiPAP on presentation ____ discontinued and placed on his baseline oxygen requirement of 2 L via nasal cannula, satting adequately about 95%. The patient was then transitioned ____ management and treatment. The patient at this time is alert to self. He knows that he is at a hospital somewhere in this area. The patient can give me his full name and the reason why he is here and remembers all his recent hospitalizations to include 2 at [facility] last month and another one at [facility]. 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 The patient originally was found to have multiple segmental PE ____. He is currently under treatment with Eliquis as well as for his atrial fibrillation. The patient additionally was treated for the possibility of infection at [facility] during his past hospital stay as well as his last hospital stay in mid-December and during his previous hospitalization at [place]. The patient again is not having any fevers, chills, cough or phlegm and does not seem to have any acute infection at this point in time. The patient does have a chronic left lung base opacity which seems to have increased in size from his last x-ray from his previous hospitalization. The patient has had multiple prior thoracentesis due to fluid accumulation, which has been sent out in the past for cytology and seems to be non-infectious and mostly hemorrhagic in nature. 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 PAST SURGICAL HISTORY: Has had left knee surgery with bolts and screws, has a cholecystectomy history, left hip surgery with rods decades ago and coronary artery disease with 6 coronary angioplasty and stents placed. SOCIAL HISTORY: Denies any tobacco, alcohol or illicit drugs. MEDICATIONS AT HOME: Per medical reconciliation. MEDICATION ALLERGIES: No known drug allergies. REVIEW OF SYSTEMS: A 10-point review of systems was covered with the patient and was negative with the exception to what was present in history of present illness. PHYSICAL EXAMINATION: VITAL SIGNS: Temperature 98.2, pulse rate of 86, respiratory rate ____, pulse ox is about 98% on 2 L nasal cannula, blood pressure ____. GENERAL: Seems to be alert and oriented x4. Not in acute distress male, sitting up in bed. HEENT: Normocephalic, atraumatic. Extraocular muscles are intact. Pupils are equally round and reactive to light and accommodation. Mucous membranes are dry. CARDIOVASCULAR: S1, S2 positive. Irregularly irregular rhythm. No rubs, gallops or murmurs. LUNGS: Seems to be with bilateral posterior base rales. No wheezing or rhonchi. ABDOMEN: Seems to be soft, nontender, nondistended. Positive bowel sounds. No guarding or rebound. EXTREMITIES: Lower extremities, the patient does have Kerlix dressing to bilateral lower shins due to his incident a few weeks ago with fall leading to lacerations of his bilateral shins. The patient's dressing seems to be clean, dry and intact. No lower extremity edema. NEUROLOGIC: No focal deficits. Cranial nerves testing 2-12 overall seems to be intact. LABORATORY WORKUP: Shows white count 7.9, H and H of 13.6/40 with a platelet count of 148,000. Chemistry shows sodium 136, potassium 5, chloride 100 ____ with 2 additional troponins done at [facility], which were also negative. BNP of 117.55. IMAGING: Chest x-ray completed at [facility], persistent diffuse bilateral interstitial opacities, patchy left basilar airspace opacity, increased from prior exam, suspected small persistent left pleural effusion, no pneumothorax. ____ size within normal limits for technique. The patient's chest imaging suggestive of heart failure. EKG was also completed showed the patient is in atrial fibrillation, ventricular rate of 83 with nonspecific intraventricular conduction delay with left axial deviation as well as left ventricular hypertrophy. DIAGNOSES: * Hypotension. * Atypical chest pain. * History of pulmonary embolism. * Bilateral pleural effusions. * Left basilar airspace opacity. SECONDARY DIAGNOSES: * Atrial fibrillation, rate controlled. * Chronic respiratory failure. * Diabetes mellitus type 2. * Coronary artery disease. * End-stage cardiomyopathy. PLAN: The patient will be admitted to Medical ICU for continuous cardiopulmonary monitoring. The patient to continue dobutamine and Levophed to maintain MAPs above 65. Recent hospitalization charts at [facility] were reviewed. The patient did have an echocardiogram recently completed. It shows that the patient does have end-stage cardiomyopathy with left ventricular ejection fraction of 15%. Despite this, the patient was given fluid hydration with 2 liters at [facility] which seems to have improved patient's blood pressures. The patient is again currently on dobutamine and a mild dose of Levophed to maintain MAPs above 65 and is slightly tapering off. Cardiology consultation with Dr. Jaja Méndez has been requested. The patient will be resumed on his amiodarone p.o. 400 mg a day for underlying atrial fibrillation. The patient has been ordered a heparin drip per pharmacy to be initiated for stroke prevention as well as for his recent underlying diagnosis of small bilateral pulmonary embolisms. A CT angio of the chest will also be ordered for assessment to see any progression of PE as well as to assess for any infectious etiology as well as increase in size of possible bilateral pleural effusions that he recurrently has had in his previous 3 admissions requiring thoracentesis. Pulmonology consultation has also been requested. The patient will be placed on a diabetic diet, Accu-Cheks a.c. and at bedtime with a low-dose regular insulin sliding scale. The patient will be also placed back on his home aspirin enteric coated 81 mg a day, Lipitor 80 mg once a day. The patient's home spironolactone and Lasix will be held at this point in time due to his low blood pressures. The patient to have Zofran 4 mg IV p.r.n. q. 4 hours for nausea and vomiting, [place] 5/325 mg p.r.n. q. 6 hours for [id number] pain. The patient is a full code. DVT prophylaxis with heparin. Further recommendations will depend on patient's hospital progression. Franki Perez MD LM/PAULINE/ROLY TID: [id number] RECEIPT: [id number]
== END 2025-01-04 20:10 | disposition home or self-care (01) | DRG 189 ==
LOC: EDBD 03:46 → ER 03:46 → OVERFLOW 05:52 → ICU CENTRL 18:00 → TELE-EAST 01-03 23:00
PROVIDERS: ADMIT Hospitalist; ATTEND Hospitalist
PROC: 0W9B3ZZ Drainage of Left Pleural Cavity, Percutaneous Approach (ICD-10-PCS; principal; 2025-01-02)
DX: J96.21 Acute and chronic respiratory failure with hypoxia (principal); R57.0 Cardiogenic shock; J98.11 Atelectasis; I48.20 Chronic atrial fibrillation, unspecified; I42.0 Dilated cardiomyopathy; J91.8 Pleural effusion in other conditions classified elsewhere; I50.22 Chronic systolic (congestive) heart failure; I50.84 End stage heart failure; E11.40 Type 2 diabetes mellitus with diabetic neuropathy, unspecified; I11.0 Hypertensive heart disease with heart failure; J44.9 Chronic obstructive pulmonary disease, unspecified; Z99.81 Dependence on supplemental oxygen; I25.10 Atherosclerotic heart disease of native coronary artery without angina pectoris; E78.5 Hyperlipidemia, unspecified; Z95.5 Presence of coronary angioplasty implant and graft; I25.2 Old myocardial infarction; Z87.891 Personal history of nicotine dependence; Z86.711 Personal history of pulmonary embolism; Z79.899 Other long term (current) drug therapy; Z79.01 Long term (current) use of anticoagulants
CPT/HCPCS: 32555; 36415; 71275; 80048; 81001; 82962; 83880; 83986; 84484; 85007; 85025; 85027; 85610; 85730; 87205; 89051; 93005; 93306; 99291; G0378; J1815; J2405; J2543